=== PATIENT | male | born 1985 | race Caucasian/White ===

== ENCOUNTER 2024-12-21 11:21 | Emergency (ER) | payer OTHER, SELFPAY ==
--- NOTE | ~2024-12-21 | CT_ITS ---
CLINICAL HISTORY: head strike, loss of conciousness CT maxillofacial without contrast Comparison: None Findings: No acute fractures. No dislocations. Temporomandibular joints are intact. There is partial fluid opacification of the maxillary sinuses, iwusk-kmohzda-ualr-left in the ethmoid air cells. The bony orbits are intact. There is mild motion artifact which limits interpretation. Again there is ossification of the stylohyoid ligament, goje-ewicwgq-wygy-right with multiple disruptions of this ossification. It is possible that the proximal lucencies reflect an acute process. IMPRESSION: Motion artifact somewhat limits interpretation. No definite maxillofacial bone fracture. Mild paranasal sinus disease. Lucencies through the left ossified stylohyoid ligament, doubtful clinical significance. This document has been electronically signed by: Corey Cevallos MD on 12/21/2024 13:02:55
--- NOTE | ~2024-12-21 | CT_ITS ---
CLINICAL HISTORY: head strike, loss of conciousness CT cervical spine without contrast Comparison: None Findings: Normal vertebral body alignment. There is straightening of the normal cervical lordosis. No significant degenerative change. No acute fractures or dislocations. There is calcification of the stylohyoid ligament, wfao-tiwdgon-ehiz-right with multiple lucencies within this, nonspecific. Visualized intracranial contents are unremarkable. No cervical fluid collections or masses. No consolidation or effusion at the lung apices. IMPRESSION: No cervical spine fracture or acute malalignment. This document has been electronically signed by: Corey Cevallos MD on 12/21/2024 12:58:22
--- NOTE | ~2024-12-21 | CT_ITS ---
CLINICAL HISTORY: head strike, loss of conciousness CT head without contrast Comparison: 04/23/2017 Findings: No intra-axial mass, midline shift, hydrocephalus, or acute hemorrhage. No significant atrophy-like change or white matter disease. Partial opacification of the maxillary sinuses and ethmoid air cells. The orbits are unremarkable. There is no acute fracture. IMPRESSION: 1. No acute intracranial findings. This document has been electronically signed by: Corey Cevallos MD on 12/21/2024 13:07:19
[2024-12-21 11:28] VITALS: BP 170/102; PULSE 116; RESP 20; TEMP 36.6; O2SAT 98; BMI 28.9
--- NOTE | 2024-12-21 11:28 | ED_ITS ---
HPI - General Adult General Chief complaint: Head Injury Stated complaint: slip and fall on ice, +HS Time Seen by Provider: 12/21/24 11:38 Source: patient Mode of arrival: ambulatory Limitations: no limitations History of Present Illness ED Provider: Krystyna Ray APRN HPI narrative: 39 yo male with PMH of alcohol use disorder presents to the ER with complaints of headache, facial pain, dizziness, nausea, vomiting, photophobia, neck pain, and disorientation after a slip and fall last evening. Patient reports he slipped on the ice last evening hitting the front of his face on the ground. +LOC. Does report he broke his upper tooth on the ground. Also some abrasions on his left hand. Tetanus unknown. Throughout the evening symptoms developed and he was unable to sleep well. Couldn't remember how to get to the hospital so he had a friend bring him. He has had multiple concussions in the past. He reports a history of AUD. Has been sober for 3 months. Yesterday had a hard day at work, my kids are also giving me a hard time . Had several alcoholic drinks last evening before his fall. Denies depression, SI/HI. Related Data Previous Rx's ?Medication ?Instructions ?Recorded acetaminophen 325 mg tablet 650 mg (2 x 325 mg) PO Q4H PRN 12/21/24 (Tylenol) pain #30 tabs ibuprofen 600 mg tablet 600 mg PO Q8H PRN pain #30 tabs 12/21/24 lorazepam 0.5 mg tablet 0.5 mg PO BEDTIME PRN sleep #7 tabs 12/21/24 ondansetron 4 mg disintegrating 4 mg PO Q6H PRN nausea and 12/21/24 tablet vomiting #12 tabs Allergies Allergy/AdvReac Type Severity Reaction Status Date / Time No Known Allergies Allergy Verified 12/21/24 11:31 [No Known Allergies*] Review of Systems 2 Review of Systems: Yes all other systems are reviewed and are negative Constitutional: Constitutional: Reports no additional constitutional complaints, Denies body ache(s), Denies chills, Denies fever(s), Reports headache(s) and Denies weakness Eyes: Eyes: Reports no additional eye complaints and Reports change in vision ENT: Reports system reviewed and no additional complaints, except as documented, Reports dizziness, Reports headache(s), Denies nasal congestion, Denies nasal discharge and Reports neck pain Cardiovascular: Cardiovascular: Reports no additional cardiovascular complaints, Denies chest pain, Denies leg edema and Denies dyspnea Respiratory: Respiratory: Reports no additional respiratory complaints, Denies cough and Denies dyspnea Gastrointestinal: Gastrointestinal: Reports no additional gastrointestinal complaints, Denies abdominal pain, Denies diarrhea, Reports nausea and Reports vomiting Genitourinary: Genitourinary: Denies urinary incontinence Musculoskeletal: Musculoskeletal: Reports no additional musculoskeletal complaints, Denies back pain, Denies arthralgias, Denies joint swelling, Reports neck pain, Denies numbness and Denies tingling Integumentary/Breasts: Skin/Breast: Reports system reviewed and no additional complaints, except as docu and Denies rash Neurologic: Reports system reviewed and no additional complaints, except as documented, Denies Abnormal speech present, Reports dizziness, Reports headache(s), Denies numbness, Denies tingling and Denies weakness PMFSH Past Medical History Attestation statement: The following information was validated with the patient. Source: old records reviewed and nursing notes reviewed Social History Social History Alcohol intake: current Alcohol intake frequency: a few times a week Smoked in Last 30 Days: No Use of substances other than those prescribed or required for medical reasons: Yes Substance Use Type: Marijuana Substance Use Frequency: Chronic Longstanding Last Used Substance: Unknown Any prior treatment program specific to substance use: No Advance Directives: No Advance Directives Information Provided: No Physical Exam ED Vital Signs: Vital Signs - 24 hr 12/21/24 11:28 Temperature 97.9 F Pulse Rate 116 H Respiratory Rate 20 Blood Pressure 170/102 H Pulse Oximetry 98 Oxygen Delivery Method Room Air BMI result Body Mass Index 28.9 Const General: cooperative, healthy appearing, comfortable and no acute distress Orientation/consciousness: patient oriented x3 Limitations: no limitations HENMT Other: No Hemotympanum No trismus, facial tenderness or crepitus noted Head: Yes normal to inspection, No Fernández's sign and No raccoon eyes Ears: hearing grossly normal bilaterally and TM's normal bilaterally General nose exam: Normal external nose present Face and sinus: Yes normal facial exam Mouth: Normal oral and palatal mucosa present Teeth image: 2 1. +broken tooth Throat: Yes posterior oropharynx normal, Yes tonsils normal and Yes uvula midline Eyes General: appearance normal, both eyes and all related structures Pupils: Equal, round and reactive pupils present Neck Other: +cervical midline tenderness to palp, no step offs or deformities Neck: Yes normal visual inspection and Yes full ROM Chest Chest palpation & inspection: normal inspection of the chest Resp Effort & Inspection: normal respiratory effort Auscultation: clear to auscultation bilaterally Cardio Rate: regular rate Rhythm: regular rhythm Peripheral pulses: Peripheral pulses 2+ throughout GI Inspection: Yes normal to inspection Palpation (GI): Soft to palpation and nontender Auscultation: normal bowel sounds Back/Spine/Pelvis Thoracic/Lumbar Spine: thoracic and lumbar spine normal to inspection Skin General skin exam: no rashes or lesions noted Neuro General: patient oriented x3, moves all extremities, no focal motor deficits and normal sensation to monofilament Cranial nerves: Yes CN's II-XII intact bilaterally, Yes Equal, round and reactive pupils present, Yes Bilaterally intact EOM present, Yes Nystagmus not present, Yes Normal facial strength present and Yes Midline tongue present Cognition (Neuro): normal cognition Speech: No Abnormal speech present Gait exam (Neuro): Normal gait present Motor exam (neuro): 5/5 motor strength present throughout Sensory Exam: Normal double simultaneous stimulation for sensation Extrem General: Yes normal to inspection Hand/finger images: 2 1. +abrasion NIH Stroke Scale Internal: Initial- Upon Arrival Level of Consciousness: Alert Level of Consciousness Questions: Answers both questions correctly Level of Consciousness Commands: Performs both tasks correctly Best Gaze: Normal Visual: No visual loss Facial Palsy: Normal Motor Arm (Right): No drift Motor Arm (Left): No drift Motor Leg (Right): No drift Motor Leg (Left): No drift Limb Ataxia: Absent Sensory: Normal Best Language: No aphasia Dysarthia: Normal Extinction and Inattention: No abnormality Score: 0 Course Course Course Narrative: RME performed by Miladis Barber PA-C. Patient is a 39 year old assigned male at presenting to the emergency department with a slip and fall. Patient states that early this morning he slipped and fell hitting his face and breaking his tooth. Patient states that he lost consciousness. Detailed physical exam and review of systems are deferred to the business systems manager. Labs and imaging ordered. Patient placed back in the waiting room pending room availability and results. Reevaluation(s) Reevaluation #1: CT facial bones, cervical spine and head are negative. Patient is tolerating p.o.. Overall is feeling improved. Neuro exam is normal. I think that he likely has a mild concussion. We reviewed head injury care at home. Seems that he has a lot of life stressors going on in this contributed to him drinking alcohol last night. He reports he has been having trouble sleeping as well. I will give him a few days' worth of lorazepam and I recommended that he follow-up with his primary care doctor. Reviewed worrisome signs and symptoms of when to return to the emergency room. Comfortable plan for discharge home Medications Administered Discontinued Medications Generic Name Dose Route Start Last Admin Trade Name Wayne PRN Reason Stop Dose Admin Acetaminophen 975 mg 12/21/24 11:57 12/21/24 12:04 Acetaminophen 325 Mg Tablet PO 12/21/24 11:58 975 mg ONCE ONE Administration Bacitracin 1 appl 12/21/24 11:57 12/21/24 12:04 Bacitracin Oint 0.9 Gm Packet TOPICAL 12/21/24 11:58 1 appl ONCE ONE Administration Protocol Diphtheria/Tetanus/Acell Pertussis 0.5 ml 12/21/24 11:57 12/21/24 12:05 Diphth,Pertus(Acell),Tet Adult 0.5 Ml Syringe IM 12/21/24 11:58 0.5 ml .ONCE ONE Administration Lorazepam 2 mg 12/21/24 11:57 12/21/24 12:04 Lorazepam 1 Mg Tablet PO 12/21/24 11:58 2 mg ONCE ONE Administration Ondansetron HCl 4 mg 12/21/24 11:57 12/21/24 12:04 Ondansetron Odt 4 Mg Tab.Rapdis TRANSLINGU 12/21/24 11:58 4 mg ONCE ONE Administration Medical Decision Making Medical Decision Making MDM Narrative: 39 yo male with PMH of alcohol use disorder presents to the ER with complaints of headache, facial pain, dizziness, nausea, vomiting, photophobia, neck pain, and disorientation after a slip and fall last evening. Also has some abrasions to left hand and broken tooth on exam. Normal neuro exam with no focal deficits. No abdominal or chest wall complaints. +tachycardic and hypertensive on arrival, quite anxious, seems to have some personal/home life stressors. +etoh history with relapse last evening. Denies SI or depression. I will obtain CT head/facial bones/cervical spine as well as labs. Will give lorazepam, APAP, boostrix, antiemetic Differential Diagnosis Differential Diagnoses: The differential diagnosis associated with the presentation includes ICH, basilar skull fracture facial fracture cervical fracture vs strain vs sprain Admission/Observation Consideration of admission/observation: Escalation of care including admission/observation considered Lab Data MDM Lab Attestation statement: I reviewed the patient's lab results. 12/21/24 12:22 12/21/24 12:23 Labs: Lab Results 12/21/24 12/21/24 Range/Units 12:22 12:23 WBC 8.8 (4.8-10.8) X10*3/uL RBC 4.73 (4.60-5.80) X10*6/uL Hgb 14.7 (14.0-18.0) g/dl Hct 39.9 L (42.0-52.0) % MCV 84.4 (80.0-98.0) fL MCH 31.1 (27.0-33.0) pg MCHC 36.8 H (31.0-36.0) g/dl RDW 12.1 (11.0-16.0) % Plt Count 319 (160-400) X10*3/uL MPV 9.8 (9.4-12.4) fL Immature Gran % (Auto) 0.5 H (0.0-0.4) % Neut % (Auto) 66.5 (45-73) % Lymph % (Auto) 22.8 (20-40) % [place] % (Auto) 7.2 (2-11) % Eos % (Auto) 2.1 (0-4) % Baso % (Auto) 0.9 (0-2) % Lymph # (Auto) 2.0 (1.2-4.9) X10*3/uL [place] # (Auto) 0.6 (0.1-1.2) X10*3/uL Eos # (Auto) 0.2 (0.0-0.4) X10*3/uL Baso # (Auto) 0.1 (0.0-0.2) X10*3/uL Abs Immat Gran (auto) 0.04 H (0.00-0.03) X10*3/uL Absolute Neuts (auto) 5.8 (2.0-8.3) x10*3/uL Absolute Nucleated RBC 0.000 (0.0-0.012) X10*3/uL Nucleated RBC % (auto) 0.0 (0.0-0.2) /100WBC PT 11.0 (10.9-12.4) SEC INR 0.9 (0.9-1.1) APTT 30.2 (26.0-36.8) SEC Sodium 139 (135-145) mmol/L Potassium 4.1 (3.3-5.1) mmol/L Chloride 107 (96-108) mmol/L Carbon Dioxide 22 (22-29) mmol/L Anion Gap 14 (12-20) BUN 13 (9-16) mg/dL Creatinine 0.77 (0.5-1.4) mg/dL Estim Creat Clear Calc 116.0 Estimated GFR > 60 Random Glucose 103 (60-115) mg/dL Calcium 9.3 (8.4-10.2) mg/dL Total Bilirubin 0.6 (0.0-1.0) mg/dL AST 75 H (5-37) U/L ALT 131 H (0-40) U/L Alkaline Phosphatase 63 (39-117) U/L Total Protein 8.4 H (6.5-8.0) g/dL Albumin 4.5 (3.5-5.0) g/dL Independent Interpretation I performed an independent interpretation of an: CT Scan Interpretation: I independently viewed the CT scan agree with the radiology report Radiology Impression Discussion of test interpretation with radiology: I have reviewed the radiologist's reading. Radiologist Impression: [address] [address] [address] Scan Report Signed Patient: Jacky Payan MR#: [id number] : 1985 Acct:[id number] Age/Sex: 39 / M ADM Date: 12/21/24 Loc: HO.ED Attending Dr: Ordering Physician: Miladis Barber Date of Service: 12/21/24 Procedure(s): CT head/brain wo IV con Accession Number(s): [id number] cc: Miladis Barber; Physician,None ~ Report Number: [id number]: Total DLP = 723.85 mGy-cm CLINICAL HISTORY: head strike, loss of conciousness CT head without contrast Comparison: 04/23/2017 Findings: No intra-axial mass, midline shift, hydrocephalus, or acute hemorrhage. No significant atrophy-like change or white matter disease. Partial opacification of the maxillary sinuses and ethmoid air cells. The orbits are unremarkable. There is no acute fracture. IMPRESSION: 1. No acute intracranial findings. [place] [address] CT Scan Report Signed Patient: Jacky Payan MR#: [id number] : 1985 Acct:[id number] Age/Sex: 39 / M ADM Date: 12/21/24 Loc: HO.ED Attending Dr: Ordering Physician: Miladis Barber Date of Service: 12/21/24 Procedure(s): CT facial bones wo IV con Accession Number(s): [id number] cc: Miladis Barber; Physician,None ~ Report Number: [id number]: Total DLP = 412.72 mGy-cm CLINICAL HISTORY: head strike, loss of conciousness CT maxillofacial without contrast Comparison: None Findings: No acute fractures. No dislocations. Temporomandibular joints are intact. There is partial fluid opacification of the maxillary sinuses, [id number]-chdrluj-qkbw-left in the ethmoid air cells. The bony orbits are intact. There is mild motion artifact which limits interpretation. Again there is ossification of the stylohyoid ligament, [id number]-tdfwjdj-sgcc-right with multiple disruptions of this ossification. It is possible that the proximal lucencies reflect an acute process. IMPRESSION: Motion artifact somewhat limits interpretation. No definite maxillofacial bone fracture. Mild paranasal sinus disease. Lucencies through the left ossified stylohyoid ligament, doubtful clinical significance. This document has been electronically signed by: Corey Cevallos MD on 12/21/2024 13:02:[address] [place] [address] [address] Scan Report Signed Patient: Jacky Payan MR#: [id number] : 1985 Acct:[id number] Age/Sex: 39 / M ADM Date: 12/21/24 Loc: HO.ED Attending Dr: Ordering Physician: Miladis Barber Date of Service: 12/21/24 Procedure(s): CT cervical spine wo IV con Accession Number(s): [id number] cc: Miladis Barber; Physician,None ~ Report Number: [id number]: Total DLP = 503.66 mGy-cm CLINICAL HISTORY: head strike, loss of conciousness CT cervical spine without contrast Comparison: None Findings: Normal vertebral body alignment. There is straightening of the normal cervical lordosis. No significant degenerative change. No acute fractures or dislocations. There is calcification of the stylohyoid ligament, [id number]-[id number]-agdx-right with multiple lucencies within this, nonspecific. Visualized intracranial contents are unremarkable. No cervical fluid collections or masses. No consolidation or effusion at the lung apices. IMPRESSION: No cervical spine fracture or acute malalignment. Discharge Plan Discharge Clinical Impression: Concussion with loss of consciousness Patient Disposition: Home, Self-Care Instructions: Concussion (ED) Additional Instructions: Your lab work is normal Your CT scan of your head, face and neck are normal. You likely have a concussion. We recommend that you participate in brain rest which means getting plenty of rest. You should limit screen time. You should take Motrin or Tylenol for any pain as needed. You should follow-up with your primary care doctor for any continued symptoms. If you develop worsening headache, persistent vomiting, you should return to the emergency room Prescriptions: New ondansetron 4 mg tablet,disintegrating 4 mg PO Q6H PRN (Reason: nausea and vomiting) Qty: 12 0RF acetaminophen [Tylenol] 325 mg tablet 650 mg PO Q4H PRN (Reason: pain) Qty: 30 0RF ibuprofen 600 mg tablet 600 mg PO Q8H PRN (Reason: pain) Qty: 30 0RF lorazepam 0.5 mg tablet 0.5 mg PO BEDTIME PRN (Reason: sleep) Qty: 7 0RF Referrals: Physician,None [Physician] - 1 week [facility] [Provider Group] - 1 week Stand Alone Forms: Work/School Release Print Language: Syriac
[2024-12-21] MEDS: Ondansetron ODT 4 MG TAB.RAPDIS TRANSLINGU (12:04)
[2024-12-21] MEDS: Bacitracin Oint 0.9 GM PACKET 1 APPL TOPICAL (12:04)
[2024-12-21] MEDS: LORazepam 1 MG TABLET 2 MG PO (12:04)
[2024-12-21] MEDS: Acetaminophen 325 MG TABLET 975 MG PO (12:04)
[2024-12-21] MEDS: Diphth,Pertus(ACell),Tet Adult 0.5 ML SYRINGE IM (12:05)
[2024-12-21 12:28] LABS: MANUAL DIFF FLAG NO
[2024-12-21 12:42] LABS: Alanine Aminotransferase 131 U/L (0-40); Albumin Level 4.5 g/dL (3.5-5.0); Alkaline Phosphatase 63 U/L (39-117); Anion Gap 14 (12-20); Aspartate Amino Transferase 75 U/L (5-37); Bilirubin Total 0.6 mg/dL (0.0-1.0); Blood Urea Nitrogen 13 mg/dL (9-16); Calcium 9.3 mg/dL (8.4-10.2); Carbon Dioxide 22 mmol/L (22-29); Chloride 107 mmol/L (96-108); Estimated Glomerular Filt Rate > 60; Glucose Random 103 mg/dL (60-115); Potassium 4.1 mmol/L (3.3-5.1); Sodium 139 mmol/L (135-145); Total Protein 8.4 g/dL (6.5-8.0)
[2024-12-21 13:04] LABS: Basophils Absolute Auto 0.1 X10*3/uL (0.0-0.2); Basophils Percent Auto 0.9 % (0-2); Eosinophils Absolute Auto 0.2 X10*3/uL (0.0-0.4); Eosinophils Percent Auto 2.1 % (0-4); Hematocrit 39.9 % (42.0-52.0); Hemoglobin 14.7 g/dl (14.0-18.0); Imm Gran Abs Auto 0.04 X10*3/uL (0.00-0.03); Imm Gran Pct Auto 0.5 % (0.0-0.4); Lymphocytes Percent Auto 22.8 % (20-40); Mean Corpuscular HGB Conc 36.8 g/dl (31.0-36.0); Mean Corpuscular Hemoglobin 31.1 pg (27.0-33.0); Mean Corpuscular Volume 84.4 fL (80.0-98.0); Mean Platelet Volume 9.8 fL (9.4-12.4); Monocytes Absolute Auto 0.6 X10*3/uL (0.1-1.2); Monocytes Percent Auto 7.2 % (2-11); Neutrophils Absolute Auto 5.8 x10*3/uL (2.0-8.3); Neutrophils Percent Auto 66.5 % (45-73); Platelet Count 319 X10*3/uL (160-400); Red Blood Count 4.73 X10*6/uL (4.60-5.80); Red Cell Distribution Width 12.1 % (11.0-16.0); White Blood Count 8.8 X10*3/uL (4.8-10.8)
[2024-12-21 13:10] LABS: INTERNATIONAL NORM RATIO 0.9 (0.9-1.1)
[2024-12-21 13:12] LABS: Partial Thromboplastin Time 30.2 SEC (26.0-36.8)
[2024-12-21 13:33] VITALS: BP 154/99; PULSE 81; RESP 20; TEMP 36.6; O2SAT 98
== END 2024-12-21 14:02 | disposition home or self-care (01) ==
PROVIDERS: Physician Assistant Medical; Emergency Provider Emergency Medicine; PCP Family Medicine
DX: S06.0X9A Concussion with loss of consciousness of unspecified duration, initial encounter (principal); S60.512A Abrasion of left hand, initial encounter; W00.0XXA Fall on same level due to ice and snow, initial encounter; Y93.9 Activity, unspecified; Y92.9 Unspecified place or not applicable; Y99.9 Unspecified external cause status; Z23 Encounter for immunization
CPT/HCPCS: 36415; 70450; 70486; 72125; 80053; 85025; 85610; 85730; 90471; 90715; 99284

== ENCOUNTER → 2024-12-21 11:30 | Outpatient (BNV) | payer OTHER, SELFPAY | PROVIDERS: Emergency Provider Emergency Medicine; Visit Provider Radiology Vascular & Interventional Radiology | DX: S06.0X9A Concussion with loss of consciousness of unspecified duration, initial encounter (principal); J01.00 Acute maxillary sinusitis, unspecified | CPT/HCPCS: 70450; 70486; 72125 ==